=== PATIENT | female | born 1980 | race African-American/Black ===

== ENCOUNTER 2020-02-19 15:40 | Emergency (ER) | payer MEDICAID ==
[2020-02-19] MEDS ORDERED: ACETAMINOPHEN 325 MG TABLET PO ONE (17:32)
--- NOTE | 2020-02-19 17:35 | ER Document Report ---
ED Medical Screen (RME) - General Chief Complaint: Abdominal Pain Stated Complaint: LOWER ABDOMINAL PAIN Time Seen by Provider: 02/19/20 17:29 Primary Care Provider: MARY STEEL [Primary Care Provider] - Follow up as needed Mode of Arrival: Ambulatory Information source: Patient Notes: 39-year-old female presents to ED for complaint of pain to the left abdomen/pelvis. She states it started yesterday but got much worse today. She states her last menstrual period was 02/06/2020. She states she has had a history of a ovarian cyst with torsion. She states she does not have any vaginal bleeding at this time. She is also had a history of anxiety follow up with your physician tomorrow for further care or return to the ED IMMEDIATELY if symptoms worsen or new concerns occur. If you cannot afford to follow up with your primary care physician a list of low cost clinics have been provided at the end of your discharge papers as well. Schizophrenia fractured pinky 3 C- sections 3 abortions and 2 miscarriages. She is alert oriented respirations regular and unlabored speaking in full sentences I have greeted and performed a rapid initial assessment of this patient. A comprehensive ED assessment and evaluation of the patient, analysis of test results and completion of medical decision making process will be conducted by an additional ED providers. - Related Data Allergies/Adverse Reactions: Sulfa (Sulfonamide Antibiotics) Allergy (Intermediate, Verified 01/13/11 12:07) Past Medical History - Past Medical History Cardiac Medical History: Reports: Hx Heart Murmur - SEE BELOW Denies: Hx Coronary Artery Disease, Hx Heart Attack, Hx Hypertension Pulmonary Medical History: Reports: Hx Pneumonia Denies: Hx Asthma, Hx Bronchitis, Hx COPD Neurological Medical History: Reports: Hx Migraine. Denies: Hx Cerebrovascular Accident, Hx Seizures GI Medical History: Musculoskeltal Medical History: Denies Hx Arthritis Psychiatric Medical History: Reports: Hx Bipolar Disorder, Hx Schizophrenia Infectious Medical History: Past Surgical History: Reports: Hx Cardiac Catheterization, Hx Cholecystectomy, Hx Orthopedic Surgery - fractured pinky. Denies: Hx Hysterectomy, Hx Pacemaker - Immunizations Hx Diphtheria, Pertussis, Tetanus Vaccination: Yes Physical Exam - Vital signs Vitals: Temp Pulse Resp BP Pulse Ox 98.4 F 78 20 124/79 100 02/19/20 17:12 02/19/20 17:12 02/19/20 17:12 02/19/20 17:12 02/19/20 17:12 Course - Vital Signs Vital signs: Temp Pulse Resp BP Pulse Ox 98.4 F 78 20 124/79 100 02/19/20 17:12 02/19/20 17:12 02/19/20 17:12 02/19/20 17:12 02/19/20 17:12 Doctor's Discharge - Discharge Referrals: LOCALMD,NO [Primary Care Provider] - Follow up as needed
[2020-02-19 18:49] LABS: APPEARANCE,URINE CLEAR; BILIRUBIN,URINE NEGATIVE (NEGATIVE); COLOR,URINE YELLOW; GLUCOSE, URINE NEGATIVE (NEGATIVE); KETONES,URINE NEGATIVE (NEGATIVE); LEUKOCYTE ESTERASE,URINE NEGATIVE (NEGATIVE); NITRITE,URINE NEGATIVE (NEGATIVE); PROTEIN,URINE NEGATIVE (NEGATIVE); URINE SPECIFIC GRAVITY 1.023
[2020-02-19 18:54] LABS: ABSOLUTE EOSINOPHILS # (AUTO) 0.1 10^3/uL (0.0-0.6); ABSOLUTE LYMPHOCYTES (AUTO) 2.1 10^3/uL (0.5-4.7); ABSOLUTE MONOCYTES (AUTO) 0.5 10^3/uL (0.1-1.4); ABSOLUTE NEUT (AUTO) 5.7 10^3/uL (1.7-8.2); BASOPHILS % (AUTO) 0.6 % (0-2); HEMATOCRIT 35.4 % (36.0-47.0); HEMOGLOBIN 11.8 g/dL (12.0-15.5); LYMPHOCYTES % (AUTO) 25.1 % (13-45); MEAN CORPUSCULAR HGB CONC 33.2 g/dL (32.0-36.0); MEAN CORPUSCULAR VOLUME 75 fl (80-97); MONOCYTES % (AUTO) 5.5 % (3-13); PLATELET COUNT 293 10^3/uL (150-450); RED CELL DISTRIBUTION WIDTH 16.7 % (11.5-14.0); SEGMENTED NEUTROPHILS % (AUTO) 67.8 % (42-78); TOTAL CELLS COUNTED % (AUTO) 100 %; WHITE BLOOD COUNT 8.4 10^3/uL (4.0-10.5)
[2020-02-19 19:10] LABS: ALKALINE PHOSPHATASE 71 U/L (38-126); ANION GAP 7 (5-19); ASPARTATE AMINO TRANSFERASE 28 U/L (14-36); BILIRUBIN,DIRECT 0.2 mg/dL (0.0-0.4); BILIRUBIN,TOTAL 0.9 mg/dL (0.2-1.3); BLOOD UREA NITROGEN 14 mg/dL (7-20); CALCIUM 9.4 mg/dL (8.4-10.2); CARBON DIOXIDE 26 mmol/L (22-30); CHLORIDE 104 mmol/L (98-107); GLUCOSE 100 mg/dL (75-110); TOTAL PROTEIN 7.1 g/dL (6.3-8.2)
--- NOTE | 2020-02-19 20:24 | RADIOLOGY REPORT (SQ) ---
Ultrasound of the pelvis: 02/19/2020 7:20 PM SENIOR SOFTWARE DEVELOPMENT MANAGER HISTORY: 39-year-old patient with pelvic pain. TECHNIQUE: Multiple grayscale and color Doppler images of the pelvis were obtained transvaginally. COMPARISON: None available FINDINGS: The uterus measures 9.8 x 3.4 x 5.0 cm. The endometrium measures 6-7 mm in thickness. A few nabothian cysts are seen. No myometrial mass is seen. The right ovary measures 2.2 x 1.5 x 1.9 cm. The left ovary measures 3.0 x 1.9 x 2.1 cm. Normal arterial waveforms were obtained from both ovaries. No free fluid is seen in the cul-de-sac. IMPRESSION: No sonographic abnormality is seen within the pelvis.
[2020-02-20 02:18] VITALS: BP 115/78
--- NOTE | 2020-02-20 02:25 | ER Document Report ---
ED GI/ - General Chief Complaint: Abdominal Pain Stated Complaint: LOWER ABDOMINAL PAIN Time Seen by Provider: 02/19/20 17:29 Primary Care Provider: MARY STEEL [NO LOCAL MD] - Follow up as needed Mode of Arrival: Ambulatory - [facility] Notes: 02/20/20 02:20 Patient is a 39-year-old female with a past medical history of depression who presents with abdominal pain. Patient states it has been present for about 2 days. It is in the middle lower abdomen. She has no right lower quadrant pain. No fevers. No diarrhea, constipation, vomiting, or nausea. Patient states she has had 3 C-sections and 3 D&Cs in the past. She also has a history of torsion and ovarian cysts. No vaginal bleeding. She has not taken anything for the pain. Pain feels sharp. Nothing makes it better or worse. She states she has never had this pain before. 02/20/20 02:25 - Related Data Allergies/Adverse Reactions: Sulfa (Sulfonamide Antibiotics) Allergy (Intermediate, Verified 01/13/11 12:07) Past Medical History - General Information source: Patient - Social History Smoking Status: Never Smoker Family History: Reviewed & Not Pertinent Patient has homicidal ideation: No - Past Medical History Cardiac Medical History: Reports: Hx Heart Murmur - SEE BELOW Denies: Hx Coronary Artery Disease, Hx Heart Attack, Hx Hypertension Pulmonary Medical History: Reports: Hx Pneumonia Denies: Hx Asthma, Hx Bronchitis, Hx COPD Neurological Medical History: Reports: Hx Migraine. Denies: Hx Cerebrovascular Accident, Hx Seizures GI Medical History: Musculoskeletal Medical History: Denies Hx Arthritis Psychiatric Medical History: Reports: Hx Bipolar Disorder, Hx Schizophrenia Infectious Medical History: Past Surgical History: Reports: Hx Cardiac Catheterization, Hx Cholecystectomy, Hx Orthopedic Surgery - fractured pinky. Denies: Hx Hysterectomy, Hx Pacemaker - Immunizations Hx Diphtheria, Pertussis, Tetanus Vaccination: Yes Review of Systems - Review of Systems Notes: CONSTITUTIONAL: No fever, fatigue or weight loss. SKIN: No rash. HENT: No congestion, ear pain, or sore throat. EYES: No recent vision problems or eye pain. CARDIOVASCULAR: No chest pain or edema. RESPIRATORY: No cough, shortness of breath, congestion, or wheezing. GASTROINTESTINAL: No nausea, vomiting, bloody stools or diarrhea. Positive for abdominal pain. GENITOURINARY: No dysuria. No vaginal discharge. No concern for STDs. MUSCULOSKELETAL: No joint pain or swelling. LYMPHATIC: No swollen glands. NEUROLOGIC: No seizures. No headache, focal weakness or sensory changes. HEMATOLOGIC: No unusual bruising or bleeding. Physical Exam - Vital signs Vitals: Temp Pulse Resp BP Pulse Ox 98.4 F 78 20 124/79 100 02/19/20 17:12 02/19/20 17:12 02/19/20 17:12 02/19/20 17:12 02/19/20 17:12 - General General appearance: Appears well In distress: None Notes: VITAL SIGNS: Within normal limits. GENERAL: No acute distress, non-toxic appearance. HEAD: Normal with no signs of head trauma. EYES: Conjunctiva normal, no discharge. EARS: Hearing grossly intact. NECK: Normal range of motion, no tenderness, supple, no lymphadenopathy, No adenopathy, no JVD. CHEST: Clear breath sounds bilaterally. No wheezes, rales, or rhonchi. CARDIAC: Regular rate and rhythm. VASCULAR: No Edema. ABDOMEN: Normal and soft. Discomfort to the middle lower quadrant palpation. No right lower quadrant tenderness. No guarding or rigidity. LYMPATHTIC: No lymphadenopathy noted. MUSCULOSKELETAL: Good range of motion of all major joints. Extremities without clubbing, cyanosis or edema. NEUROLOGICAL: Alert and oriented x 3. No focal sensory or strength deficits. Speech normal. Follows commands appropriately. PSYCHIATRIC: Normal Affect, judgement and mood. SKIN: Normal appearance with no rashes or lesions. Course - Re-evaluation Re-evalutation: 02/20/20 02:24 Patient appears well. I discussed her negative ultrasound and normal lab work. Patient states she still having pain and wants to know what is going on. I did offer her CT scan. Will reassess. Her vitals are within normal limits. Patient CT scan is unremarkable. I discussed all findings with the patient. I informed her that she needs to return to the ER immediately if pain is not improved in 24 hours. She was instructed to drink fluids. Patient is declining any pain medicine. Was told to follow-up with her PCP. 02/20/20 06:26 - Vital Signs Vital signs: Temp Pulse Resp BP Pulse Ox 98.2 F 80 16 115/78 98 02/20/20 02:16 02/20/20 02:16 02/20/20 02:16 02/20/20 02:16 02/20/20 02:16 - Laboratory Results Result Diagrams: 02/19/20 18:21 02/19/20 18:21 Laboratory Results Interpreted: 02/19/20 02/19/20 18:21 18:21 Hgb 11.8 L Hct 35.4 L MCV 75 L MCH 25.0 L RDW 16.7 H Urine Urobilinogen 2.0 H Critical Laboratory Results Reviewed: No Critical Results - Radiology Results Critical Radiology Results Reviewed: No Critical Results Discharge - Discharge Clinical Impression: Abdominal pain Qualifiers: Abdominal location: lower abdomen, unspecified Qualified Code(s): R10.30 - Lower abdominal pain, unspecified Condition: Stable Disposition: HOME, SELF-CARE Instructions: Abdominal Pain ([facility]) Additional Instructions: Your work-up is reassuring. Your CAT scan and ultrasound were negative. You may use Tylenol or ibuprofen for pain. Please return to the ER immediately if pain does not improve in 24 hours. Please follow-up with your family doctor. Referrals: LOCALMD,NO [NO LOCAL MD] - Follow up as needed
--- NOTE | 2020-02-20 03:31 | RADIOLOGY REPORT (SQ) ---
CT abdomen and pelvis without contrast on 02/20/2020 at 2:28 AM CLINICAL INDICATION: Lower abdominal pain TECHNIQUE: Multiple axial images are obtained throughout the abdomen and pelvis without the administration of contrast. This exam was performed according to our departmental dose-optimization program, which includes automated exposure control, adjustment of the mA and/or kV according to patient size and/or use of iterative reconstruction technique. Total DLP is 976.77 mGy*cm. COMPARISON: 08/09/2010 FINDINGS: Abdomen: The lung bases are clear. The patient is status post cholecystectomy. There are no renal or ureteral stones and no hydronephrosis. The unenhanced solid abdominal organs are unremarkable. There is no abdominal adenopathy. There is no free fluid or free air within the abdomen. The abdominal portion of the GI tract is unremarkable. Pelvis: There is likely an adhesion between the anterior uterus and lower anterior pelvic wall. This is seen best on sagittal image 56. Pelvic organs otherwise appear unremarkable by unenhanced CT. No free fluid is noted in the pelvis. There is no pelvic adenopathy. Pelvic portion of the GI tract including the appendix is unremarkable. No acute bony abnormality is noted. IMPRESSION: No acute abnormality.
[2020-02-20] MEDS ORDERED: KETOROLAC TROMETHAMINE 60 MG/2 ML SDV IM ONE (03:46)
== END 2020-02-20 04:35 | disposition home or self-care (01) ==
LOC: ER 15:40
DX: R10.30 Lower abdominal pain, unspecified (principal); F32.9 Major depressive disorder, single episode, unspecified; Z90.49 Acquired absence of other specified parts of digestive tract; Z88.2 Allergy status to sulfonamides
CPT/HCPCS: 99285; 36415; 87086; 84703; 85025; 80053; 81001; 76830; 93976; 74176; J3490